=== PATIENT | male | born 1975 | race Caucasian/White ===

== ENCOUNTER 2017-09-04 11:01 | Emergency (ER) | payer OTHER ==
--- NOTE | 2017-09-04 12:25 | RAD REPORT ---
EXAM DESCRIPTION: RAD - Knee Left 3 View - 09/04/2017 11:51 am CLINICAL HISTORY: Left knee pain and swelling COMPARISON: August 24 FINDINGS: No fracture, dislocation or periosteal reaction.No joint effusion seen. No joint space onesimo rowing. Soft tissues remain edematous. No air or foreign body. No significant change from prior imaging. IMPRESSION: Soft tissue edema remains. No acute bone or joint finding. Clinical concerns for internal derangement or occult bony injury could be further assessed with MR im aging.
--- NOTE | 2017-09-04 12:59 | RAD REPORT ---
EXAM DESCRIPTION: VAS - Extremity Venous Uni Ltd - 09/04/2017 12:45 pm CLINICAL HISTORY: Left leg pain and swelling COMPARISON: None. TECHNIQUE: Real-time sonographic evaluation of the left lower extremity deep venous system was perfo rmed. FINDINGS: Normal compressibility, flow augmentation, phasic flow and spontaneous flow are identified in the left lower extremity deep venous system. No intraluminal filling defects seen. IMPRESSION: No DVT in the left lower extremity.
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
--- NOTE | 2017-09-04 13:39 | ER ---
Nurse's Notes [facility] Name: Bethel Anna Age: 42 yrs Sex: Male : 1975 Arrival Date: 09/04/2017 Time: 11:03 Bed 12 Private MD: Diagnosis: Pain in left knee Presentation: 09/04 11:08 Presenting complaint: Patient states: i was here for my L knee injury and pain and hj swelling; was told to follow with MD for MRI, unable to do so; now yesterday was complaining of severe pain and swelling; unable to finish the antibiotics because of diarrhea;. Transition of care: patient was not received from another setting of care. Onset of symptoms was September 04, 2017. Care prior to arrival: None. 11:08 Method Of Arrival: Ambulatory 11:08 Acuity: DRAKE 4 hj Triage Assessment: 11:10 General: Appears in no apparent distress. uncomfortable, Behavior is calm, cooperative, hj appropriate for age. Pain: Complains of pain in left knee. Historical: - Allergies: 11:10 No Known Allergies; hj - Home Meds: 11:10 None [Active]; hj - PMHx: 11:10 None; hj - PSHx: 11:10 None; hj - Immunization history:: Adult Immunizations unknown. - Social history:: Smoking status: unknown. Screenin:15 Abuse screen: Denies threats or abuse. Denies injuries from another. Nutritional iw screening: No deficits noted. Tuberculosis screening: No symptoms or risk factors identified. Fall Risk None identified. Assessment: 13:15 General: Appears in no apparent distress. Behavior is calm, cooperative. Pain: iw Complains of pain in left knee. Neuro: Level of Consciousness is awake, alert, obeys commands, Oriented to person, place, time, situation, Moves all extremities. Full function. Cardiovascular: Patient's skin is warm and dry. Respiratory: Respiratory effort is even, unlabored, Respiratory pattern is regular. Derm: Skin is pink, warm \T\ dry. normal. Musculoskeletal: Range of motion: limited in left knee Swelling present in medial aspect of left knee and left knee. Vital Signs: 11:10 BP 102 / 67; Pulse 69; Resp 18; Temp 97.3(TE); Pulse Ox 99% on R/A; Weight 113.4 kg; hj Height 6 ft. 2 in. (187.96 cm); Pain 8/10; 11:10 Body Mass Index 32.10 (113.40 kg, 187.96 cm) ED Course: 11:03 Patient arrived in ED. rg4 11:10 Triage completed. hj 11:10 Arm band placed on right wrist. hj 11:36 Margaret Hatfield, RN is Primary Nurse. iw 11:37 Manuel Lott PA is PHCP. cp 11:37 Manuel Baltazar MD is Attending Physician. cp 11:49 Patient moved to radiology via wheelchair. jb2 11:49 Knee Left 3 View XRAY In Process Unspecified. EDMS 12:45 US Extremity Venous Uni Ltd In Process Unspecified. EDMS 12:57 US Extrmty Nonvasular Limited: medial aspect left lower thigh In Process Unspecified. EDMS 13:15 Patient has correct armband on for positive identification. iw 13:38 Refugio Brown MD is Referral Physician. cp 14:00 No provider procedures requiring assistance completed. Patient did not have IV access iw during this emergency room visit. Administered Medications: No medications were administered Outcome: 13:38 Discharge ordered by MD. cp 14:00 Discharged to home ambulatory, with friend. iw 14:00 Condition: good 14:00 Discharge instructions given to patient, Instructed on discharge instructions, follow up and referral plans. medication usage, Demonstrated understanding of instructions, follow-up care, medications, Prescriptions given X 1. 14:01 Patient left the ED. iw Signatures: Dispatcher [employer] EDMS Jakob Bueno jb2 Margaret Hatfield RN RN Alejandro Cerna RN RN Manuel Lott PA PA cp Garcia, Rubi rg4 Corrections: (The following items were deleted from the chart) 11:12 11:10 Pulse 69bpm; Resp 18bpm; Pulse Ox 99% RA; Temp 97.3F Temporal; 113.4 kg; Height 6 hj ft. 2 in.; BMI: 32.1; Pain 8/10; hj
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
== END 2017-09-04 14:01 | disposition home or self-care (01) ==
LOC: ER 11:01
DX: M25.562 Pain in left knee (principal); X58.XXXA Exposure to other specified factors, initial encounter; Y93.89 Activity, other specified
CPT/HCPCS: 76882; 93971; 99283

== ENCOUNTER 2018-06-06 21:52 | Emergency (ER) | payer OTHER, SELFPAY ==
[2018-06-06] MEDS ORDERED: ACETAMINOPHEN 500 MG TAB ONE (22:35)
[2018-06-07] MEDS ORDERED: OSELTAMIVIR 75 MG CAP ONE (00:14)
[2018-06-07] MEDS ORDERED: AZITHROMYCIN 250 MG TAB ONE (00:15)
[2018-06-07] MEDS ORDERED: NA CHLORIDE 0.9% 2,000 ML ONE (00:15)
[2018-06-07] MEDS ORDERED: ONDANSETRON 4 MG/2 ML VIAL ONE (00:15)
[2018-06-07] MEDS ORDERED: CEFTRIAXONE/SWI 1gm 1 GM/10 ML SYR ONE (00:15)
[2018-06-07 00:39] LABS: Absolute Lymphocytes (CBC) 1.5 K/uL (0.7-4.9); Absolute Monocytes 0.7 K/uL (0.1-1.3); Basophils % 0.4 % (0-1.3); Eosinophils % 0.5 % (0-4.4); Hematocrit 47.8 % (39.6-49.0); MPV 9.1 fL (7.6-11.3); Monocytes % 6.8 % (3.3-12.3); RBC Red Blood Cell Count 5.65 M/uL (4.33-5.43)
--- NOTE | 2018-06-07 00:48 | EDPHYS ---
Physician Documentation [facility] Name: Bethel Anna Age: 42 yrs Sex: Male : 1975 Arrival Date: 06/06/2018 Time: 22:01 Bed 26 Private MD: ED Physician Manuel Baltazar HPI: 06/06 23:52 This 42 yrs old Male presents to ER via Ambulatory with complaints of Fever. rufino 23:52 The patient reports fever, that was measured at 102 degrees Fahrenheit. Onset: The rufino symptoms/episode began/occurred 2 day(s) ago. Modifying factors: there are no obvious modifying factors. Associated signs and symptoms: Pertinent positives: cough, decreased appetite, nausea, sinus congestion, sinus drainage, vomiting. Severity of symptoms: At their worst the symptoms were moderate in the emergency department the symptoms are unchanged. The patient has not experienced similar symptoms in the past. Historical: - Allergies: 22:22 No Known Allergies; ak1 - Home Meds: 22:22 None [Active]; ak1 - PMHx: 22:22 None; ak1 - PSHx: 22:22 None; ak1 - Immunization history:: Adult Immunizations unknown. - Social history:: Smoking status: Patient uses tobacco products, smokes two packs cigarettes per day. - Ebola Screening: : No symptoms or risks identified at this time. - Family history:: not pertinent. ROS: 23:52 Eyes: Negative for injury, pain, redness, and discharge, ENT: Negative for injury, rufino pain, and discharge, Neck: Negative for injury, pain, and swelling, Cardiovascular: Negative for chest pain, palpitations, and edema, Abdomen/GI: Negative for abdominal pain, nausea, vomiting, diarrhea, and constipation, Back: Negative for injury and pain, : Negative for injury, bleeding, discharge, and swelling, MS/Extremity: Negative for injury and deformity, Skin: Negative for injury, rash, and discoloration, Neuro: Negative for headache, weakness, numbness, tingling, and seizure, Psych: Negative for depression, anxiety, suicide ideation, homicidal ideation, and hallucinations, Allergy/Immunology: Negative for hives, rash, and allergies, Endocrine: Negative for neck swelling, polydipsia, polyuria, polyphagia, and marked weight changes, Hematologic/Lymphatic: Negative for swollen nodes, abnormal bleeding, and unusual bruising. 23:52 Constitutional: Positive for chills, fever, malaise. 23:52 Respiratory: Positive for cough, shortness of breath, on exertion. Exam: 23:52 Head/Face: Normocephalic, atraumatic. Eyes: Pupils equal round and reactive to light, rufino extra-ocular motions intact. Lids and lashes normal. Conjunctiva and sclera are non-icteric and not injected. Cornea within normal limits. Periorbital areas with no swelling, redness, or edema. ENT: Nares patent. No nasal discharge, no septal abnormalities noted. Tympanic membranes are normal and external auditory canals are clear. Oropharynx with no redness, swelling, or masses, exudates, or evidence of obstruction, uvula midline. Mucous membranes moist. Neck: Trachea midline, no thyromegaly or masses palpated, and no cervical lymphadenopathy. Supple, full range of motion without nuchal rigidity, or vertebral point tenderness. No Meningismus. Chest/axilla: Normal chest wall appearance and motion. Nontender with no deformity. No lesions are appreciated. Abdomen/GI: Soft, non-tender, with normal bowel sounds. No distension or tympany. No guarding or rebound. No evidence of tenderness throughout. Back: No spinal tenderness. No costovertebral tenderness. Full range of motion. Male : Normal genitalia with no discharge or lesions. Skin: Warm, dry with normal turgor. Normal color with no rashes, no lesions, and no evidence of cellulitis. 23:52 Constitutional: The patient appears febrile. 23:52 Cardiovascular: Rate: tachycardic, Rhythm: regular, Pulses: Pulses are 4+ in bilateral radial, brachial, femoral, popliteal, posterior tibial and and dorsalis pedis arteries.. Heart sounds: normal, Edema: is not appreciated, JVD: is not appreciated. Vital Signs: 22:20 BP 158 / 110; Pulse 110; Resp 22; Temp 102.5(O); Pulse Ox 95% on R/A; Weight 113.4 kg ak1 (M); Height 6 ft. 2 in. (187.96 cm) (R); Pain 10/10; 22:45 BP 105 / 67; Pulse 102; Resp 20; Pulse Ox 100% ; tl3 06/07 01:14 BP 154 / 100; Pulse 137; Resp 18; Temp 99.1(O); Pulse Ox 96% ; tl3 06/06 22:20 Body Mass Index 32.10 (113.40 kg, 187.96 cm) ak MDM: 06/06 22:58 Patient medically screened. [facility] 23:55 Data reviewed: vital signs, nurses notes, lab test result(s), radiologic studies. [facility] 06/06 22:23 Order name: Flu; Complete Time: 23:50 [facility] 06/06 22:23 Order name: Strep; Complete Time: 23:50 [facility] 06/06 22:45 Order name: Throat Culture [facility] 06/06 23:52 Order name: CBC with Diff; Complete Time: 00:46 [facility] 06/06 23:52 Order name: Comprehensive Metabolic Panel; Complete Time: 01:09 [facility] 06/06 23:52 Order name: Chest Pa And Lat (2 Views) XRAY [facility] Administered Medications: 22:40 Drug: Tylenol 1000 mg Route: PO; tl3 06/07 00:55 Follow up: Response: No adverse reaction tl3 00:27 Drug: NS 0.9% 1000 ml Route: IV; Rate: 1 bolus; Site: right antecubital; tl3 01:16 Follow up: IV Status: Completed infusion; IV Intake: 1000ml tl3 00:27 Drug: NS 0.9% 1000 ml Route: IV; Rate: 1 bolus; Site: right antecubital; tl3 01:16 Follow up: IV Status: Completed infusion; IV Intake: 1000ml tl3 00:27 Drug: Tamiflu 75 mg Route: PO; tl3 00:54 Follow up: Response: No adverse reaction tl3 00:27 Drug: Zofran 4 mg Route: IVP; Site: right antecubital; tl3 00:54 Follow up: Response: No adverse reaction tl3 00:28 Drug: Zithromax 500 mg Route: PO; tl3 00:55 Follow up: Response: No adverse reaction tl3 00:28 Drug: Rocephin - (cefTRIAXone) 1 grams Route: IVPB; Infused Over: 5 mins; Site: right tl3 antecubital; Delivery: Primary tubing; 00:55 Follow up: IV Status: Completed infusion; IV Intake: 20ml tl3 Disposition: 06/07/18 00:47 Discharged to Home. Impression: Fever, unspecified, Acute upper respiratory infection, unspecified, Influenza due to identified novel influenza A virus. - Condition is Stable. - Discharge Instructions: Fever, Adult, Upper Respiratory Infection, Adult, Upper Respiratory Infection, Adult, [id number], Influenza, Adult, [id number], Cough, Adult. - Prescriptions for Zofran 4 mg Oral Tablet - take 1 tablet by ORAL route every 12 hours As needed; 14 tablet. Tamiflu 75 mg Oral Capsule - take 1 tablet by ORAL route every 12 hours for 5 days; 14 tablet. Zithromax 500 mg Oral Tablet - take 1 tablet by ORAL route once daily for 4 days; 4 tablet. - Medication Reconciliation Form, Thank You Letter, Antibiotic Education, Prescription Opioid Use form. - Follow up: Private Physician; When: 2 - 3 days; Reason: Recheck today's complaints, Continuance of care, Re-evaluation by your physician. - Problem is new. - Symptoms have improved. Signatures: Dispatcher [employer] Manuel Kim MD MD cha Krenek, Amber RN RN ak1 Radha Mccallum RN RN tl3 Corrections: (The following items were deleted from the chart) 01:17 00:47 06/07/2018 00:47 Discharged to Home. Impression: Fever, unspecified; Acute upper tl3 respiratory infection, unspecified; Influenza due to identified novel influenza A virus. Condition is Stable. Discharge Instructions: Fever, Adult, Upper Respiratory Infection, Adult, Upper Respiratory Infection, Adult, [id number], Influenza, Adult, [id number], Cough, Adult. Prescriptions for Zofran 4 mg Oral Tablet - take 1 tablet by ORAL route every 12 hours As needed; 14 tablet, Tamiflu 75 mg Oral Capsule - take 1 tablet by ORAL route every 12 hours for 5 days; 14 tablet, Zithromax 500 mg Oral Tablet - take 1 tablet by ORAL route once daily for 4 days; 4 tablet. and Forms are Medication Reconciliation Form, Thank You Letter, Antibiotic Education, Prescription Opioid Use. Follow up: Private Physician; When: 2 - 3 days; Reason: Recheck today's complaints, Continuance of care, Re-evaluation by your physician. Problem is new. Symptoms have improved. rufino
--- NOTE | 2018-06-07 00:48 | ER ---
Nurse's Notes [facility] Name: Bethel Anna Age: 42 yrs Sex: Male : 1975 Arrival Date: 06/06/2018 Time: 22:01 Bed 26 Private MD: Diagnosis: Fever, unspecified;Acute upper respiratory infection, unspecified;Influenza due to identified novel influenza A virus Presentation: 06/06 22:21 Presenting complaint: Patient states: fever, body aches, cough since yesterday. pt had ak1 motrin at 1400. Transition of care: patient was not received from another setting of care. Onset of symptoms was June 05, 2018. Initial Sepsis Screen: Does the patient have a suspected source of infection?. Care prior to arrival: None. 22:21 Acuity: DRAKE 3 ak1 22:21 Method Of Arrival: Ambulatory ak1 06/07 01:17 Risk Assessment: Do you want to hurt yourself or someone else? Patient reports no tl3 desire to harm self or others. Initial Sepsis Screen: Does the patient meet any 2 criteria? No. Patient's initial sepsis screen is negative. Historical: - Allergies: 06/06 22:22 No Known Allergies; ak1 - Home Meds: 22:22 None [Active]; ak1 - PMHx: 22:22 None; ak1 - PSHx: 22:22 None; ak1 - Immunization history:: Adult Immunizations unknown. - Social history:: Smoking status: Patient uses tobacco products, smokes two packs cigarettes per day. - Ebola Screening: : No symptoms or risks identified at this time. - Family history:: not pertinent. Screenin:45 Abuse screen: Denies threats or abuse. Nutritional screening: No deficits noted. tl3 Tuberculosis screening: No symptoms or risk factors identified. Fall Risk None identified. Assessment: 22:45 General: Appears distressed, uncomfortable, well groomed, well developed, well tl3 nourished, Behavior is calm, cooperative, appropriate for age. Pain: Complains of pain in generalized body aches. Neuro: Level of Consciousness is awake, alert, obeys commands, Oriented to person, place, time, situation, Appropriate for age. Cardiovascular: Patient's skin is warm and dry. Respiratory: Breath sounds are coarse bilaterally. Respiratory: Airway is patent Respiratory effort is even, unlabored, Respiratory pattern is regular, symmetrical. GI: No signs and/or symptoms were reported involving the gastrointestinal system. : No signs and/or symptoms were reported regarding the genitourinary system. EENT: Eyes injected. Nares are clear with drainage noted. Derm: No deficits noted. No signs and/or symptoms reported regarding the dermatologic system. 06/07 00:53 Reassessment: Patient appears in no apparent distress at this time. No changes from tl3 previously documented assessment. Patient and/or family updated on plan of care and expected duration. Pain level reassessed. Patient is alert, oriented x 3, equal unlabored respirations, skin warm/dry/pink. 01:14 Reassessment: Patient appears in no apparent distress at this time. No changes from tl3 previously documented assessment. Patient and/or family updated on plan of care and expected duration. Pain level reassessed. Patient is alert, oriented x 3, equal unlabored respirations, skin warm/dry/pink. Vital Signs: 06/06 22:20 BP 158 / 110; Pulse 110; Resp 22; Temp 102.5(O); Pulse Ox 95% on R/A; Weight 113.4 kg ak1 (M); Height 6 ft. 2 in. (187.96 cm) (R); Pain 10/10; 22:45 BP 105 / 67; Pulse 102; Resp 20; Pulse Ox 100% ; tl3 06/07 01:14 BP 154 / 100; Pulse 137; Resp 18; Temp 99.1(O); Pulse Ox 96% ; tl3 06/06 22:20 Body Mass Index 32.10 (113.40 kg, 187.96 cm) ak1 ED Course: 06/06 22:01 Patient arrived in ED. ag3 22:20 Arm band placed on Patient placed in waiting room, Patient notified of wait time. ak1 22:22 Triage completed. ak1 22:40 Radha Mccallum, RN is Primary Nurse. tl3 22:45 Patient has correct armband on for positive identification. Bed in low position. Call tl3 light in reach. Side rails up X 1. Adult w/ patient. Pulse ox on. NIBP on. 22:45 No provider procedures requiring assistance completed. Patient did not have IV access tl3 during this emergency room visit. 22:58 Manuel Baltazar MD is Attending Physician. [facility] 06/07 00:13 Patient moved to radiology via wheelchair. kw 00:14 X-ray completed. Patient tolerated procedure well. kw 00:14 Patient moved back from radiology. kw 00:21 Chest Pa And Lat (2 Views) XRAY In Process Unspecified. EDMS 00:32 Inserted saline lock: 20 gauge in right antecubital area, using aseptic technique. tl3 Blood collected. 01:14 IV discontinued, intact, bleeding controlled, No redness/swelling at site. Pressure tl3 dressing applied. Administered Medications: 06/06 22:40 Drug: Tylenol 1000 mg Route: PO; tl3 06/07 00:55 Follow up: Response: No adverse reaction tl3 00:27 Drug: NS 0.9% 1000 ml Route: IV; Rate: 1 bolus; Site: right antecubital; tl3 01:16 Follow up: IV Status: Completed infusion; IV Intake: 1000ml tl3 00:27 Drug: NS 0.9% 1000 ml Route: IV; Rate: 1 bolus; Site: right antecubital; tl3 01:16 Follow up: IV Status: Completed infusion; IV Intake: 1000ml tl3 00:27 Drug: Tamiflu 75 mg Route: PO; tl3 00:54 Follow up: Response: No adverse reaction tl3 00:27 Drug: Zofran 4 mg Route: IVP; Site: right antecubital; tl3 00:54 Follow up: Response: No adverse reaction tl3 00:28 Drug: Zithromax 500 mg Route: PO; tl3 00:55 Follow up: Response: No adverse reaction tl3 00:28 Drug: Rocephin - (cefTRIAXone) 1 grams Route: IVPB; Infused Over: 5 mins; Site: right tl3 antecubital; Delivery: Primary tubing; 00:55 Follow up: IV Status: Completed infusion; IV Intake: 20ml tl3 Intake: 00:55 IV: 20ml; Total: 20ml. tl3 01:16 IV: 1000ml; Total: 1020ml. tl3 01:16 IV: 1000ml; Total: 2020ml. tl3 Outcome: 00:47 Discharge ordered by . rufino 01:16 Discharged to home ambulatory. tl3 01:16 Condition: stable 01:16 Discharge instructions given to patient, family, Instructed on discharge instructions, follow up and referral plans. medication usage, Demonstrated understanding of instructions, follow-up care, medications, Prescriptions given X 2. 01:17 Patient left the ED. tl3 Signatures: Dispatcher [employer] EDManuel Haas MD MD cha Whitley, Kimberlee kw Krenek, Amber, RN RN ak1 Radha Mccallum RN RN tl3 Kristy Klein
[2018-06-07 00:55] LABS: Albumin 3.7 g/dL (3.4-5.0); Bilirubin Total 0.4 mg/dL (0.2-1.0)
--- NOTE | 2018-06-07 09:12 | RAD REPORT ---
EXAM DESCRIPTION: Victoriano Bahena (2 Views)06/07/2018 12:21 am CLINICAL HISTORY: Cough COMPARISON: None FINDINGS: An azygos fissure is present. The lungs appear clear of acute infiltrate. The heart is normal size IMPRESSION: No acute abnormalities displayed
== END 2018-06-07 01:17 | disposition home or self-care (01) ==
LOC: ER 21:52
DX: J10.1 Influenza due to other identified influenza virus with other respiratory manifestations (principal); F17.210 Nicotine dependence, cigarettes, uncomplicated
CPT/HCPCS: 36415; 71046; 80053; 85025; 87070; 87081; 87804; 96365; 96375; 99284; J0696; J2405; J7030

== ENCOUNTER 2021-08-07 10:48 | Emergency (ER) | payer BC, SELFPAY ==
[2021-08-07] MEDS ORDERED: dexAMETHasone 10 MG/ML VIAL ONE (11:43)
[2021-08-07] MEDS ORDERED: KETOROLAC 30 MG/ML INJ ONE (11:43)
[2021-08-07] MEDS ORDERED: HYDROCODONE/CHLORPHEN 5 ML/OSYR ONE (11:43)
[2021-08-07] MEDS ORDERED: LEVALBUTEROL 0.63 MG/3 ML NEB ONE (12:22)
[2021-08-07 12:50] LABS: SARS-COV-2 RT PCR NEGATIVE (NEGATIVE)
--- NOTE | 2021-08-07 14:59 | RAD REPORT ---
EXAM DESCRIPTION: RAD - Chest Single View - 08/07/2021 2:51 pm CLINICAL HISTORY: SOB Chest pain. COMPARISON: Chest Pa And Lat (2 Views) dated 06/07/2018 FINDINGS: Portable technique limits examination quality. Mild bilateral interstitial lung opacities are present which may represent a viral infection. The hea rt is normal in size. No displaced fractures.
--- NOTE | 2021-08-07 15:07 | ER ---
Nurse's Notes [facility] Name: Bethel Anna Age: 46 yrs Sex: Male : 1975 Arrival Date: 08/07/2021 Time: 10:51 Bed 12 Private MD: Diagnosis: Acute bronchitis, unspecified Presentation: 08/07 11:00 Chief complaint: Patient states: Painful cough that started yesterday, reports pain in ph bilateral rib area and back, denies fever, N/V/D or SOB. States, " I'm not short of breath but it hurts to breathe." VSS. Coronavirus screen: Vaccine status: Patient reports being unvaccinated. cough unrelated to allergies, muscle pain, Client presents with at least one sign or symptom that may indicate coronavirus-19. Standard/surgical mask placed on the client. Ebola Screen: No symptoms or risks identified at this time. Initial Sepsis Screen: Does the patient meet any 2 criteria? No. Patient's initial sepsis screen is negative. Does the patient have a suspected source of infection? No. Patient's initial sepsis screen is negative. Risk Assessment: Do you want to hurt yourself or someone else? Patient reports no desire to harm self or others. Onset of symptoms was August 07, 2021. 11:00 Method Of Arrival: Ambulatory 11:00 Acuity: DRAKE 4 ph Triage Assessment: 11:04 General: Appears in no apparent distress. uncomfortable, Behavior is calm, cooperative, ph appropriate for age, Denies fever, chills. Pain: Complains of pain in back, diaphragm, right lateral anterior chest and left lateral anterior chest. Neuro: Level of Consciousness is awake, alert, obeys commands, Oriented to person, place, time, situation. Cardiovascular: Capillary refill < 3 seconds in bilateral fingers Patient's skin is warm and dry. Respiratory: Reports cough that is pain with cough pain with respiration Airway is patent Respiratory effort is even, unlabored, Respiratory pattern is regular, symmetrical. GI: No signs and/or symptoms were reported involving the gastrointestinal system. Derm: Skin is intact, is healthy with good turgor, Skin is pink, warm \\T\\ dry. Musculoskeletal: Circulation, motion, and sensation intact. Range of motion: intact in all extremities. Historical: - Allergies: 11:03 No Known Allergies; ph - PMHx: 11:03 None; ph - PSHx: 11:03 None; ph - Immunization history:: Client reports having NOT received the Covid vaccine. - Social history:: Smoking status: Patient reports the use of cigarette tobacco products, smokes one-half pack cigarettes per day. Screenin:05 Abuse screen: Denies threats or abuse. Denies injuries from another. Nutritional ph screening: No deficits noted. Tuberculosis screening: No symptoms or risk factors identified. Fall Risk None identified. Assessment: 11:15 General: General: SEE TRIAGE ASSESSMENT. ph 12:30 Reassessment: Patient appears in no apparent distress at this time. Patient and/or ph family updated on plan of care and expected duration. Pain level reassessed. Patient is alert, oriented x 3, equal unlabored respirations, skin warm/dry/pink. 13:45 Reassessment: Patient appears in no apparent distress at this time. Patient and/or ph family updated on plan of care and expected duration. Pain level reassessed. Patient is alert, oriented x 3, equal unlabored respirations, skin warm/dry/pink. Awaiting CXR. 15:16 Reassessment: Patient appears in no apparent distress at this time. Patient and/or ss family updated on plan of care and expected duration. Pain level reassessed. Patient states feeling better. Patient states symptoms have improved. Vital Signs: 11:00 BP 127 / 73; Pulse 87; Resp 20; Temp 98.8; Pulse Ox 98% on R/A; Weight 122.47 kg; ph Height 6 ft. 2 in. (187.96 cm); 13:00 BP 138 / 79; Pulse 89; Resp 20; Pulse Ox 99% on R/A; ph 11:00 Body Mass Index 34.67 (122.47 kg, 187.96 cm) ph ED Course: 10:51 Patient arrived in ED. ds1 11:00 Christel Holguin, ZEB is Primary Nurse. ph 11:01 Gen Victor PA is PHCP. jmm 11:01 Dennis Davis DO is Attending Physician. [facility] 11:03 Triage completed. ph 11:03 Arm band placed on Patient placed in an exam room. ph 11:05 Patient has correct armband on for positive identification. Call light in reach. Door ph closed. Noise minimized. 11:50 COVID-19/FLU A+B (Document "Date of Onset" if Symptomatic) Sent. ph 14:51 Chest Single View XRAY In Process Unspecified. EDMS 15:16 No provider procedures requiring assistance completed. Patient did not have IV access ss during this emergency room visit. Administered Medications: 11:50 Drug: Ketorolac 30 mg Route: IM; Site: right deltoid; ph 15:17 Follow up: Response: No adverse reaction; Marked relief of symptoms ss 11:50 Drug: Tussionex Pennkinetic ER (chlorpheniramine-hydrocodone) Suspension 5 ml Route: PO;ph 15:17 Follow up: Response: No adverse reaction; Marked relief of symptoms ss 11:50 Drug: Decadron (dexamethasone) 10 mg Route: IM; Site: left deltoid; ph 15:17 Follow up: Response: No adverse reaction ss 12:22 Drug: Xopenex (levalbuterol) (3) 1.25 mg Route: Inhalation; ld1 Outcome: 15:07 Discharge ordered by . [facility] 15:16 Discharged to home ambulatory. ss 15:16 Condition: good 15:16 Discharge instructions given to patient, family, Instructed on discharge instructions, follow up and referral plans. medication usage, Demonstrated understanding of instructions, follow-up care, medications, Prescriptions given X 4. 15:17 Patient left the ED. ss Signatures: Dispatcher [employer] EDMS Gen Victor PA PA jmm Sanford, Demi ds1 Divya Mojica RN RN Christel Holguin RN RN Diane Ross RN RN ld1 Corrections: (The following items were deleted from the chart) 15:05 15:04 General: ph ph 15:05 13:45 Reassessment: Patient appears in no apparent distress at this time. Patient ph and/or family updated on plan of care and expected duration. Pain level reassessed. Patient is alert, oriented x 3, equal unlabored respirations, skin warm/dry/pink. ph
--- NOTE | 2021-08-07 15:08 | EDPHYS ---
Physician Documentation [facility] Name: Bethel Anna Age: 46 yrs Sex: Male : 1975 Arrival Date: 08/07/2021 Time: 10:51 Bed 12 Private MD: ED Physician Dennis Davis HPI: 08/07 11:02 This 46 yrs old Male presents to ER via Ambulatory with complaints of Cough. jmm 11:02 The patient or guardian reports cough. Onset: The symptoms/episode began/occurred jmm gradually, 3 day(s) ago. Modifying factors: The symptoms are alleviated by nothing, the symptoms are aggravated by nothing. Associated signs and symptoms: Pertinent positives: Pertinent negatives: fever. This is a 46 year old male with no chronic medical conditions presents emerged part with complaints of cough, right-sided chest pain, shortness of breath. Approximate 3 days ago but is worse today. Historical: - Allergies: 11:03 No Known Allergies; ph - PMHx: 11:03 None; ph - PSHx: 11:03 None; ph - Immunization history:: Client reports having NOT received the Covid vaccine. - Social history:: Smoking status: Patient reports the use of cigarette tobacco products, smokes one-half pack cigarettes per day. ROS: 11:02 Constitutional: Positive for body aches, chills. jmm 11:02 Respiratory: Positive for cough. 11:02 All other systems are negative. Exam: 11:02 Constitutional: This is a well developed, well nourished patient who is awake, alert, jmm and in no acute distress. Head/Face: atraumatic. Eyes: EOMI, no conjunctival erythema appreciated ENT: Moist Mucus Membranes Neck: Trachea midline, Supple Chest/axilla: Normal chest wall appearance and motion. Cardiovascular: Regular rate and rhythm. No edema appreciated Respiratory: Normal respirations, no respiratory distress appreciated Abdomen/GI: Non distended, soft Back: Normal ROM 11:02 Skin: General appearance color normal MS/ Extremity: Moves all extremities, no obvious deformities appreciated, no edema noted to the lower extremities Neuro: Awake and alert Psych: Behavior is normal, Mood is normal, Patient is cooperative and pleasant 11:02 Chest/axilla: Palpation: tenderness, that is moderate, of the right lateral anterior chest. Vital Signs: 11:00 BP 127 / 73; Pulse 87; Resp 20; Temp 98.8; Pulse Ox 98% on R/A; Weight 122.47 kg; ph Height 6 ft. 2 in. (187.96 cm); 13:00 BP 138 / 79; Pulse 89; Resp 20; Pulse Ox 99% on R/A; ph 11:00 Body Mass Index 34.67 (122.47 kg, 187.96 cm) ph MDM: 11:02 Patient medically screened. [facility] 15:06 Data reviewed: vital signs, nurses notes. Counseling: I had a detailed discussion with [facility] the patient and/or guardian regarding: the historical points, exam findings, and any diagnostic results supporting the discharge/admit diagnosis, the need for outpatient follow up, to return to the emergency department if symptoms worsen or persist or if there are any questions or concerns that arise at home. 08/07 11:36 Order name: COVID-19/FLU A+B (Document "Date of Onset" if Symptomatic) [facility] 08/07 11:37 Order name: COVID-19/FLU A+B; Complete Time: 13:20 [facility] 08/07 13:50 Order name: Chest Single View XRAY; Complete Time: 15:01 [facility] Administered Medications: 11:50 Drug: Ketorolac 30 mg Route: IM; Site: right deltoid; ph 15:17 Follow up: Response: No adverse reaction; Marked relief of symptoms ss 11:50 Drug: Tussionex Pennkinetic ER (chlorpheniramine-hydrocodone) Suspension 5 ml Route: PO;ph 15:17 Follow up: Response: No adverse reaction; Marked relief of symptoms ss 11:50 Drug: Decadron (dexamethasone) 10 mg Route: IM; Site: left deltoid; ph 15:17 Follow up: Response: No adverse reaction ss 12:22 Drug: Xopenex (levalbuterol) (3) 1.25 mg Route: Inhalation; ld1 Disposition: 21:26 Co-signature as Attending Physician, Dennis Davis DO I agree with the assessment and ms3 plan of care. Disposition Summary: 08/07/21 15:07 Discharge Ordered Location: Home [facility] Condition: Stable [facility] Diagnosis - Acute bronchitis, unspecified [facility] Followup: [facility] - With: Private Physician - When: 2 - 3 days - Reason: Recheck today's complaints, Continuance of care, Re-evaluation by your physician Discharge Instructions: - Discharge Summary Sheet [facility] - Acute Bronchitis, Adult [facility] Forms: - Medication Reconciliation Form [facility] - Thank You Letter [facility] - Antibiotic Education [facility] - Prescription Opioid Use [facility] Prescriptions: - Prednisone 20 mg Oral Tablet - take 3 tablets by ORAL route once daily for 5 days; 15 tablet; Refills: 0, [facility] Product Selection Permitted - albuterol sulfate 90 mcg/actuation Inhalation HFA aerosol inhaler - inhale 2 puff by INHALATION route every 4 hours; 1 Pump; Refills: 0, Product [facility] Selection Permitted - promethazine-DM - take 5 milliliter by ORAL route every 4-6 hours; 200 milliliter; Refills: 0, [facility] Product Selection Permitted - benzonatate 200 mg Oral Capsule - take 1 capsule by ORAL route 3 times per day as needed; 30 capsule; Refills: 0, [facility] Product Selection Permitted Signatures: Dispatcher [employer] Gen Uribe PA PA [facility] Christel Holguin, RN RN Dennis Sweet DO DO ms3 Diane Ross RN RN ld1 Divya Mojica RN ss
[2021-08-07 15:56] VITALS: TEMP 98.8
[2021-08-07 15:57] VITALS: BP 138/79; O2SAT 99
== END 2021-08-07 15:17 | disposition home or self-care (01) ==
LOC: ER 10:48
DX: J20.9 Acute bronchitis, unspecified (principal); Z20.822 Contact with and (suspected) exposure to COVID-19; F17.210 Nicotine dependence, cigarettes, uncomplicated
CPT/HCPCS: 0240U; 71045; 96372; 99284; J1100